=== PATIENT | female | born 1935 | race Caucasian/White ===

== ENCOUNTER → 2016-04-30 | Outpatient (REF) | payer SELFPAY | LOC: LAB 15:14 | PROVIDERS: Visit Provider Internal Medicine ==

== ENCOUNTER → 2017-09-16 16:57 | Outpatient (REF) | payer MEDICARE, BC, SELFPAY ==
[2017-09-16 17:14] LABS: Basophils % 0.6 % (0.1-2.0); Eosinophils # 0.2 K/mm3 (0.0-0.4); Eosinophils % 3.3 % (0.1-12.0); Hematocrit 41.2 % (37.0-47.0); Lymphocytes # 1.9 K/mm3 (0.7-4.5); Lymphocytes % 29.2 K/mm3 (10-50); Mean Corpuscular HGB Conc 31.6 g/dL (31.8-35.4); Mean Corpuscular Hemoglobin 30.2 pg (27.0-31.2); Mean Corpuscular Volume 95.4 fl (81-99); Mean Platelet Volume 7.2 fl (7.4-10.4); Monocytes # 0.5 K/mm3 (0.1-1.0); Monocytes % 8.3 % (1.7-9.3); Neutrophils # 3.7 K/mm3 (1.8-7.8); Neutrophils % 58.8 % (37.0-80.0); Platelet Count 336 K/mm3 (142-424); Red Blood Count 4.32 M/mm3 (4.20-5.40); Red Cell Distribution Width 12.7 % (11.5-17.5); White Blood Count 6.4 K/mm3 (4.8-10.8)
== END ==
LOC: LAB 16:57
PROVIDERS: Visit Provider Internal Medicine
DX: D64.9 Anemia, unspecified (principal); J44.1 Chronic obstructive pulmonary disease with (acute) exacerbation; J20.9 Acute bronchitis, unspecified
CPT/HCPCS: 85025

== ENCOUNTER → 2018-01-06 14:23 | Outpatient (CLI) | payer MEDICARE, BC, SELFPAY ==
--- NOTE | 2018-01-06 14:33 | XR_ITS ---
XR chest 2V HISTORY: ITS.REASON: COOUGH, CONGESTION, COPD ORDERING PHYSICIAN: Wesley Skinner PATIENT AGE: 82 years COMPARISON: 12/14/2017 FINDINGS: Normal heart size. Extensive COPD once again noted. The vanesa are prominent consistent with bilateral hilar adenopathy as seen on the recent chest CT of 12/14/2017. The left hilar adenopathy extends into the left mid and lower lung zone. Nodular density is present in the left mid lung at 2 cm. No obvious lobar consolidation or collapse evident. No acute bony anomalies. Pulmonary arteries are also prominent and may be related to pulmonary arterial hypertension. No acute bony anomalies. IMPRESSION: 1. COPD with suspected pulmonary arterial hypertension. 2. Left hilar and infrahilar adenopathy with nodular density in the left midlung similar to the previous CT scan. 3. No lobar consolidation or collapse
[2018-01-06 15:01] LABS: Basophils % 0.3 % (0.1-2.0); Eosinophils # 0.1 K/mm3 (0.0-0.4); Eosinophils % 1.4 % (0.1-12.0); Hematocrit 37.8 % (37.0-47.0); Hemoglobin 12.1 g/dL (12.2-16.2); Lymphocytes # 1.6 K/mm3 (0.7-4.5); Lymphocytes % 20.8 K/mm3 (10-50); Mean Corpuscular HGB Conc 31.9 g/dL (31.8-35.4); Mean Corpuscular Hemoglobin 30.3 pg (27.0-31.2); Mean Corpuscular Volume 94.8 fl (81-99); Mean Platelet Volume 6.8 fl (7.4-10.4); Monocytes # 0.5 K/mm3 (0.1-1.0); Monocytes % 6.1 % (1.7-9.3); Neutrophils # 5.6 K/mm3 (1.8-7.8); Neutrophils % 71.4 % (37.0-80.0); Platelet Count 441 K/mm3 (142-424); Red Blood Count 3.98 M/mm3 (4.20-5.40); White Blood Count 7.8 K/mm3 (4.8-10.8)
== END ==
PROVIDERS: PCP Internal Medicine; Visit Provider Internal Medicine
DX: R05 Cough (principal); J44.9 Chronic obstructive pulmonary disease, unspecified; K62.5 Hemorrhage of anus and rectum
CPT/HCPCS: 36415; 71046; 85025

== ENCOUNTER → 2018-02-06 11:36 | Outpatient (CLI) | payer MEDICARE, BC, SELFPAY ==
[2018-02-06 11:45] LABS: Microscopic, Urine URINE MICROSCOPIC (MICROSCOPIC)
--- NOTE | 2018-02-06 11:59 | XR_ITS ---
XR lumbar spine min 4V Ordering Physician: Wesley Skinner Patient Age: 82 years: Female HISTORY: ITS.REASON: LEFT SIDED LOW BACK PAIN TECHNIQUE: 5 view lumbar spine series . COMPARISON 12/14/2017 CT abdomen pelvis reconstructions FINDINGS . Diffuse demineralization. Diffuse Osteoporosis. . L2 superior endplate compression fracture L2. New compared to 12/14/2017 CT . superior endplate cavity with approximately 40% loss of height at the central portion of this concave superior endplate L2.. There is very subtle posterior positioning, posterior flaring of the posterior superior corner of L2 which may very slightly impinge upon the spinal canal. Only question some subtle concavity at inferior endplate L2. L1. Older inferior endplate compression fracture Mild inferior endplate cavity/reflecting prior older compression at L1 was seen on the recent CT December 2017 . features here unchanged since 12/14/2017. L4 and L3 vertebral bodies remain intact. Unchanged L4/5 Marked degenerative disc space narrowing with grade 1 anterior 7 mm listhesis of L4 on L5.. Prominent, exuberant facet hypertrophy & arthropathy.. December CT abdomen views of the L-spine showed showed spinal stenosis at L4/5 due to the combination of these features. L5/S1. Disc intact. Exuberant prominent facet hypertrophy and on right moderate on left. The AP view shows a dextro scoliosis of the lower lumbar spine most evident, and due to the marked disc space narrowing to the left at L4/5. . Slight levocurvature at the thoracolumbar region. Chronic changes at lung bases. Partially imaged bilateral hips fixation, ORIF. The sacrum intact SI joints unremarkable. IMPRESSION L2-. Superior endplate compression fracture, up to 35-40% loss of height centrally. This is new feature vs December 2017 CT abdomen study used as comparison. L1-Stable mild inferior endplate compression at L1 L4/5. Grade 1 anterolisthesis L5 4 on L5. Marked degenerative disc space narrowing to the left with exuberant facet hypertrophy bilaterally. (December CT revealed underlying spinal stenosis, also with bulging disc at right foramen) L5/S1. Disc space maintained but there is Exuberant facet hypertrophy on the right. Scoliosis as above. Diffuse demineralization. Osteoporosis
[2018-02-06 12:07] LABS: Basophils % 0.3 % (0.1-2.0); Eosinophils % 0.3 % (0.1-12.0); Hematocrit 43.5 % (37.0-47.0); Hemoglobin 13.1 g/dL (12.2-16.2); Lymphocytes # 0.7 K/mm3 (0.7-4.5); Lymphocytes % 10.8 K/mm3 (10-50); Mean Corpuscular HGB Conc 30.2 g/dL (31.8-35.4); Mean Corpuscular Hemoglobin 30.2 pg (27.0-31.2); Mean Corpuscular Volume 100.1 fl (81-99); Mean Platelet Volume 6.8 fl (7.4-10.4); Monocytes # 0.2 K/mm3 (0.1-1.0); Monocytes % 3.3 % (1.7-9.3); Neutrophils # 5.5 K/mm3 (1.8-7.8); Neutrophils % 85.3 % (37.0-80.0); Platelet Count 388 K/mm3 (142-424); Red Blood Count 4.34 M/mm3 (4.20-5.40); Red Cell Distribution Width 13.6 % (11.5-17.5); White Blood Count 6.5 K/mm3 (4.8-10.8)
[2018-02-06 12:13] LABS: MANUAL DIFFERENTIAL MANUAL DIFFERENTIAL (MANUAL DIFF)
[2018-02-06 12:16] LABS: Appearance,Urine SL CLOUDY (Clear); Bilirubin,Urine Negative (Negative); Blood, Urine Negative (Negative); Color,Urine YELLOW (Yellow); Glucose,Urine (UA) Negative (Negative); Ketones,Urine Negative (Negative); Leukocyte Esterase,Urine Negative (Negative); Nitrate,Urine Negative (Negative); Protein,Urine Negative (Negative); Specific Gravity, Urine 1.015 (1.005-1.030); Urobilinogen,Urine 0.2 EU/dl (0.2)
[2018-02-06 12:31] LABS: Lymphocytes % 9 % (10-50); Monocytes % 3 % (2-9); Neutrophils % 88 % (42-76); Platelet Estimate Normal; Total Cells Counted 100
[2018-02-06 12:32] LABS: Macrocytosis 1+
[2018-02-06 12:46] LABS: Amphetamine/Metha Screen,Urine Negative ng/mL (<1000); Barbiturates Screen,Urine Negative ng/mL (<200); Benzodiazepines Screen,Urine Negative ng/mL (<200); Cannabinoid Screen,Urine Negative ng/mL (<50); Cocaine Screen,Urine Negative ng/mL (<300); Methadone Screen,Urine Negative ng/mL (<300); Opiate Screen,Urine Positive ng/mL (<300); Phencyclidine Screen,Urine Negative ng/mL (<25)
[2018-02-06 12:58] LABS: Anion Gap 10.7 mEq/L (5-15); Blood Urea Nitrogen 11 mg/dL (7-18); Calcium 8.2 mg/dL (8.5-10.1); Carbon Dioxide 30 mmol/L (21.0-32.0); Chloride 96 mmol/L (98-107); Creatinine,Serum 0.84 mg/dL (0.55-1.02); Estimated Glomerular Filt Rate 65 ml/min (>60); GFR (African American) 79 ML/MIN (>60); Glucose 107 mg/dL (74-106); Potassium 4.7 mmoL/L (3.5-5.1); Sodium 132 mmol/L (136-145)
[2018-02-06 13:30] LABS: Bacteria,Urine 4+ /lpf
== END ==
PROVIDERS: Visit Provider Internal Medicine
DX: R19.5 Other fecal abnormalities (principal); M54.5 Low back pain; R53.83 Other fatigue
CPT/HCPCS: 36415; 72110; 80048; 80305; 81001; 85007; 85025; 87086

== ENCOUNTER 2018-03-27 09:47 | Inpatient (IN) ==
[2018-03-27 11:03] LABS: Basophils % 0.3 % (0.1-2.0); Eosinophils % 0.3 % (0.1-12.0); Hematocrit 41.5 % (37.0-47.0); Hemoglobin 13.1 g/dL (12.2-16.2); Lymphocytes # 0.6 K/mm3 (0.7-4.5); Lymphocytes % 5.7 % (10-50); Mean Corpuscular HGB Conc 31.5 g/dL (31.8-35.4); Mean Corpuscular Hemoglobin 30.9 pg (27.0-31.2); Mean Platelet Volume 6.7 fl (7.4-10.4); Monocytes # 0.3 K/mm3 (0.1-1.0); Monocytes % 2.3 % (1.7-9.3); Neutrophils # 10.1 K/mm3 (1.8-7.8); Neutrophils % 91.3 % (37.0-80.0); Platelet Count 412 K/mm3 (142-424); Red Blood Count 4.23 M/mm3 (4.20-5.40); Red Cell Distribution Width 13.6 % (11.5-17.5)
--- NOTE | 2018-03-27 11:08 | Emergency Department Note ---
ED Disposition Clinical Impression: Mediastinal mass, Community acquired pneumonia Disposition: Admitted as Observation Condition on Discharge: Good Referrals: Wesley Skinner [Primary Care Provider] - - Critical Care Critical Care Time: No Attestation: On 03/27/18, the high probability of a clinically significant, sudden or life threatening deterioration of the following system(s) required my full and direct attention, intervention and personal management. The time I documented below is in addition to time spent performing reported procedures but includes the following listed in this critical care notation. Medical Decision Making - Medical Records Medical records reviewed: Yes: I reviewed the patient's medical records. - Isaiah Inquiry Pt receiving controlled substance: No Isaiah was queried for this patient: No Vital Signs: 03/27/18 09:48 03/27/18 10:18 Temperature 97.7 F Temperature Source Temporal Artery Scan Pulse Rate 70 Pulse Rate [Right Radial] 78 Respiratory Rate 22 Blood Pressure [Right Arm] 119/55 L Blood Pressure Mean [Right Arm] 76 Blood Pressure Source [Right Arm] Automatic Cuff Blood Pressure Position [Right Arm] Sitting 02 Sat by Pulse Oximetry 96 Oxygen Delivery Method Nasal Cannula Oxygen Flow Rate (LPM) 3 - Lab Data Lab results reviewed: Yes: I reviewed the patient's lab results. Lab Results 03/27/18 10:30: WBC 11.0 H, RBC 4.23, Hgb 13.1, Hct 41.5, MCV 98.0, MCH 30.9, MCHC 31.5 L, RDW 13.6, Plt Count 412, MPV 6.7 L, Neut % (Auto) 91.3 H, Lymph % (Auto) 5.7 L, [place] % (Auto) 2.3, Eos % (Auto) 0.3, Baso % (Auto) 0.3, Neut # (Auto) 10.1 H, Lymph # (Auto) 0.6 L, [place] # (Auto) 0.3, Eos # (Auto) 0.0, Baso # (Auto) 0.0, Total Counted 100, Neutrophils % (Manual) 88 H, Lymphocytes % (Manual) 12, Platelet Estimate Normal, RBC Morphology Normal 03/27/18 10:45: Sodium 138, Potassium 3.7, Chloride 99, Carbon Dioxide 31, Anion Gap 11.7, BUN 15, Creatinine 0.90, Estimated Creat Clear 27, Estimated GFR 60, Est GFR ( Amer) 73, Glucose 126 H, Calcium 8.7, Total Bilirubin 0.3, AST 24, ALT 17, Alkaline Phosphatase 62, Total Protein 7.2, Albumin 3.6, Globulin 3.6 H, Albumin/Globulin Ratio 1.0 L 03/27/18 10:45: Lactate 1.5 03/27/18 10:45: Troponin I < 0.02 Result diagrams: 03/27/18 10:30 03/27/18 10:45 Orders (Tests/Meds): ED MEDICATIONS Discontinued Medications Generic Name Dose Route Start Last Admin Trade Name Freq PRN Reason Stop Dose Admin Albuterol Sulfate 2.5 mg 03/27/18 10:09 03/27/18 10:14 Albuterol 0.083% 2.5mg/3ml Neb IH 03/27/18 10:10 2.5 mg ONCE ONE Administration Sodium Chloride 1,000 mls @ 999 mls/hr 03/27/18 10:15 03/27/18 10:23 Sod Chlor 0.9% 1000ml Bag IV 03/27/18 11:15 999 mls/hr .Q1H1M JOEL Administration Ondansetron HCl 4 mg 03/27/18 10:09 03/27/18 10:23 Zofran 4mg/2ml Vial IV 03/27/18 10:10 4 mg ONCE ONE Administration ORDERS Category Date Time Status UA [Urinalysis and Microscopic] Stat Lab 03/27/18 11:03 Ordered Blood Culture Stat Micro 03/27/18 10:45 Received General Adult HPI - General Chief complaint: Shortness of Breath/Dyspnea Stated complaint: poss pneumonia Time Seen by Provider: 03/27/18 09:50 Mode of Arrival: Wheelchair Limitations: No Limitations Description of Symptoms (Recalled from ER Triage Doc. by RN): Pt sent from PCP office r/t increased SOA, cough. Pt reports has been vomitting this morning. - History of Present Illness Onset (ago): hour(s) Location: chest, abdomen Severity: moderate Consistency: intermittent, other (chest pain with cough) Associated symptoms: chest pain. negative: confusion Treatments prior to arrival: none - Related Data Home Medications Medication Instructions Recorded Confirmed alendronate 5 mg tablet 5 mg PO QAM 09/27/17 aspirin 81 mg tablet,delayed 81 mg PO DAILY tab 09/27/17 release ferrous fumarate 89 mg (29 mg 89 mg PO DAILY tab 09/27/17 iron) tablet lisinopril 20 1 tab PO DAILY tab 09/27/17 mg-hydrochlorothiazide 25 mg tablet lorazepam 0.5 mg tablet 0.5 mg PO QHS PRN 09/27/17 meclizine 25 mg tablet 12.5 mg PO TID PRN 09/27/17 oxybutynin chloride 5 mg tablet 5 mg PO DAILY tab 09/27/17 ropinirole 3 mg tablet 3 mg PO QHS 09/27/17 Allergies Allergy/AdvReac Type Severity Reaction Status Date / Time No Known Allergies Allergy Unverified 03/22/17 15:02 [facility] History - Hepatitis A Screen Drug use history?: No High risk sexual behaviors?: No History of sexually transmitted infection?: No Currently employed?: No Childcare worker?: No Do you have indoor plumbing?: Yes Do you have electricity?: Yes Attestation statement:: This patient has been screened for Hepatitis A risk factors. Medical History: Reports:: Chronic Obstructive Pulmonary Disease (COPD), Renal Disease Denies:: Diabetes Mellitus Type 1, Diabetes Mellitus Type 2 - Social History Smoking Status: Current every day smoker Tobacco Type: cigarettes Alcohol Intake: never - Psychiatric History Expresses thoughts of harming self/others: None Suicide Plan Description: No Plan ROS Obtained: Yes All systems reviewed & no additional complaints - Constitutional Constitutional: Reports chills, Reports lethargy, Reports malaise - Eyes Eyes: Denies change in vision - ENT Ears, Nose, Mouth, and Throat: Reports system reviewed and no additional complaints, except as docu, Reports sore throat, Reports throat swelling - Cardiovascular Cardiovascular: Reports system reviewed and no additional complaints, except as docu, Reports chest pain, Reports dyspnea, Reports dyspnea on exertion, Denies radiating jaw, neck or arm pain, Denies rapid heart rate, Denies slow heart rate - Respiratory Respiratory: Yes system reviewed and no additional complaints, except as docu, Yes chest congestion, Yes cough, Yes dyspnea on exertion, Yes excessive phlegm production, No coughing up blood, Yes pain on inspiration - Musculoskeletal Musculoskeletal: Reports system reviewed and no additional complaints, except as docu, Denies joint swelling, Denies muscle cramps, Denies muscle weakness, Denies muscle aches - Integumentary/Breasts Skin/Breast: Reports system reviewed and no additional complaints, except as docu, Denies rash - Neurologic Neurologic: Reports system reviewed and no additional complaints, except as docu, Denies focal weakness, Denies tingling/numbness/burning sensations, Denies seizure-like activity Physical Exam - General General appearance: alert, in no apparent distress, cachectic - Head Head exam: atraumatic - Eye Eye exam: Present: normal appearance - ENT ENT exam: Present: normal exam, normal oropharynx, mucous membranes moist - Neck Neck exam: Present: normal inspection - Respiratory Respiratory exam: Present: wheezes, prolonged expiratory phase. Absent: respira tory distress - Cardiovascular Cardiovascular exam: Present: regular rate, normal heart sounds. Absent: systolic murmur - Abdominal Exam Abdominal exam: Present: soft, tenderness. Absent: distention, guarding, rebound, rigidity, organomegaly, ascites, mass Abdominal tenderness: Present: LLQ, epigastrium - Extremities Exam Extremities exam: Absent: normal inspection, joint swelling - Neurological Exam Neurological exam: Present: CN II-XII intact - Psychiatric Psychiatric exam: Present: normal affect - Skin Skin exam: Present: warm, dry, intact
[2018-03-27 11:14] LABS: Albumin Level 3.6 gm/dL (3.4-5.0); Anion Gap 11.7 mEq/L (5-15); Bilirubin,Total 0.3 mg/dL (0.2-1.0); Calcium 8.7 mg/dL (8.5-10.1); Globulin 3.6 gm/dl (1.3-3.2); Potassium 3.7 mmoL/L (3.5-5.1); Total Protein,Serum 7.2 gm/dL (6.4-8.2)
[2018-03-27 11:19] LABS: Lymphocytes % 12 % (10-50); Neutrophils % 88 % (42-76); Total Cells Counted 100
[2018-03-27 11:20] LABS: RBC Morphology Normal
--- NOTE | 2018-03-27 13:39 | History & Physical Report ---
*Admission Date: 03/27/18 *Chief complaint: Vomiting/shortness of air *History of present illness: 82-year-old white female, patient of Dr. Skinner, who went to his office today because of difficulty breathing and vomiting. Transitioned over to the emergency department where she was found to have lobar infiltrate, chest mass and dehydration. Admitted to hospital with diagnosis of pneumonia. Patient reports that she been feeling badly for 2-3 weeks. Her daughter and sister report that she has had decreasing p.o. intake and weight loss over the past couple of weeks. Of note she has a known diagnosis of chest mass and she and Dr. Skinner have decided that her lungs are too bad for her to have a biopsy and they have discussed pursuing palliative care. [facility] History I have reviewed the patient's past medical history: Yes Medical History: Reports:: Chronic Obstructive Pulmonary Disease (COPD), Renal Disease Denies:: Diabetes Mellitus Type 1, Diabetes Mellitus Type 2 - *Social History Smoking Status: Current every day smoker Tobacco Type: cigarettes Alcohol Intake: never - Psychiatric History Expresses thoughts of harming self/others: None Suicide Plan Description: No Plan *Family Hx:: Non-contributory Review of Systems - Review of Systems Review of systems:: unable to obtain Patient has significant hard of hearing status but is alert. Able to respond appropriately to commands. Reports that she is feeling better since hospital admission. Reports nausea without vomiting. Denies abdominal pain. Reports chest pain and pressure. Reports difficulty breathing. Denies palpitations. Denies leg swelling. - *Neurologic Denies localized weakness, Denies tingling/numbness/burning sensations, Denies seizure-like activity Meds Home Medications Medication Instructions Recorded Confirmed Type alendronate 5 mg tablet 5 mg PO QAM 09/27/17 History aspirin 81 mg tablet,delayed 81 mg PO DAILY tab 09/27/17 History release ferrous fumarate 89 mg (29 mg 89 mg PO DAILY tab 09/27/17 History iron) tablet lisinopril 20 1 tab PO DAILY tab 09/27/17 History mg-hydrochlorothiazide 25 mg tablet lorazepam 0.5 mg tablet 0.5 mg PO QHS PRN 09/27/17 History meclizine 25 mg tablet 12.5 mg PO TID PRN 09/27/17 History oxybutynin chloride 5 mg tablet 5 mg PO DAILY tab 06/26/18 History ropinirole 3 mg tablet 3 mg PO QHS 09/27/17 History Allergies Allergy/AdvReac Type Severity Reaction Status Date / Time No Known Allergies Allergy Unverified 03/22/17 15:02 Exam Vital signs and Labs for Last 24 Hours: Temp Pulse Resp BP Pulse Ox 98.2 F 62 20 101/51 L 96 03/27/18 13:24 03/27/18 13:24 03/27/18 13:24 03/27/18 13:24 03/27/18 12:52 Laboratory Results - last 24 hr 03/27/18 10:30: WBC 11.0 H, RBC 4.23, Hgb 13.1, Hct 41.5, MCV 98.0, MCH 30.9, MCHC 31.5 L, RDW 13.6, Plt Count 412, MPV 6.7 L, Neut % (Auto) 91.3 H, Lymph % (Auto) 5.7 L, [place] % (Auto) 2.3, Eos % (Auto) 0.3, Baso % (Auto) 0.3, Neut # (Auto) 10.1 H, Lymph # (Auto) 0.6 L, [place] # (Auto) 0.3, Eos # (Auto) 0.0, Baso # (Auto) 0.0, Total Counted 100, Neutrophils % (Manual) 88 H, Lymphocytes % (Manual) 12, Platelet Estimate Normal, RBC Morphology Normal 03/27/18 10:45: Sodium 138, Potassium 3.7, Chloride 99, Carbon Dioxide 31, Anion Gap 11.7, BUN 15, Creatinine 0.90, Estimated Creat Clear 27, Estimated GFR 60, Est GFR ( Amer) 73, Glucose 126 H, Calcium 8.7, Total Bilirubin 0.3, AST 24, ALT 17, Alkaline Phosphatase 62, Total Protein 7.2, Albumin 3.6, Globulin 3.6 H, Albumin/Globulin Ratio 1.0 L 03/27/18 10:45: Lactate 1.5 03/27/18 10:45: Troponin I < 0.02 I & O for Last 24 hours: Intake & Output 03/25/18 03/26/18 03/27/18 03/28/18 11:59 11:59 11:59 11:59 Weight 83 lb Narrative: Patient appears much older than her stated age. Dentition is poor. She has significant muscle atrophy and cachexia noted with evidence of severe protein calorie malnutrition. Poor air movement with rhonchi in the left lower lung field. Heart rate regular. 2/6 murmur noted. Abdomen soft. Cachectic. Minimally/diffusely tender but no rebound or guarding. Extremities have poor capillary refill but normal distal pulses. No edema noted. Cachexia noted. Globally weak but no focal neurologic deficits. Assessment and Plan (1) End stage COPD Current visit: Yes Status: Acute Category: Medical Code(s): J44.9 - Chronic obstructive pulmonary disease, unspecified Palliative care seems to be in order here given chest mass that is probably a lung cancer and patient's severe lung disease. Daughter and sister are amenable to hospice consultation and have already discussed this with the patient. (2) Severe protein-calorie malnutrition Current visit: Yes Status: Acute Category: Medical Code(s): E43 - Unspecified severe protein-calorie malnutrition Supportive care. This issue complicates all aspects of her care in the hospital (3) Postobstructive pneumonia Current visit: Yes Status: Acute Category: Medical Code(s): J18.9 - Pneumonia, unspecified organism Continue levofloxacin. Add clindamycin for possible anaerobic issues. (4) Community acquired pneumonia Current visit: Yes Status: Acute Category: Medical Code(s): J18.9 - Pneumonia, unspecified organism See notes above (5) Mediastinal mass Current visit: Yes Status: Acute Category: Medical Code(s): J98.59 - Other diseases of mediastinum, not elsewhere classified Mediastinal/chest mass. High likelihood of malignancy. Family and patient did not wish biopsy. Hospice consultation is appropriate.
[2018-03-27 21:02] LABS: Microscopic, Urine URINE MICROSCOPIC (MICROSCOPIC)
[2018-03-27 21:03] LABS: Appearance,Urine CLEAR (Clear); Bilirubin,Urine Negative (Negative); Blood, Urine Negative (Negative); Color,Urine YELLOW (Yellow); Glucose,Urine (UA) Negative (Negative); Ketones,Urine Negative (Negative); Leukocyte Esterase,Urine Negative (Negative); PH,Urine 6.5 (5.0-8.5); Protein,Urine TRACE (Negative); Specific Gravity, Urine 1.025 (1.005-1.030); Urobilinogen,Urine 0.2 EU/dl (0.2)
[2018-03-28 05:52] LABS: Basophils % 0.3 % (0.1-2.0); Eosinophils % 0.5 % (0.1-12.0); Hematocrit 34.2 % (37.0-47.0); Hemoglobin 10.9 g/dL (12.2-16.2); Lymphocytes # 1.2 K/mm3 (0.7-4.5); Lymphocytes % 21.4 % (10-50); Mean Corpuscular HGB Conc 31.8 g/dL (31.8-35.4); Mean Corpuscular Volume 97.5 fl (81-99); Mean Platelet Volume 7.3 fl (7.4-10.4); Monocytes # 0.4 K/mm3 (0.1-1.0); Monocytes % 6.5 % (1.7-9.3); Neutrophils # 3.8 K/mm3 (1.8-7.8); Neutrophils % 71.3 % (37.0-80.0); Platelet Count 332 K/mm3 (142-424); Red Cell Distribution Width 13.7 % (11.5-17.5); White Blood Count 5.4 K/mm3 (4.8-10.8)
[2018-03-28 06:01] LABS: Calcium 7.5 mg/dL (8.5-10.1)
--- NOTE | 2018-03-28 08:19 | Pharmacy Consult Notes ---
[facility] Pharmacy VTE Monitoring - Patient Demographics Admission date: 03/27/18 Report Date: 03/28/18 Time: 08:19 Allergies/Adverse Reactions: Patient Allergies No Known Allergies Allergy (Verified 03/27/18 15:10) Height: 1.6 m Weight: 38.329 kg Patient Problems: Current Active Problems Community acquired pneumonia (Acute) Mediastinal mass (Acute) End stage COPD (Acute) Severe protein-calorie malnutrition (Acute) Postobstructive pneumonia (Acute) - VTE Risk Labs: VTE Related Lab Results Hgb 10.9 g/dL (12.2-16.2) L D 03/28/18 05:40 Hct 34.2 % (37.0-47.0) L 03/28/18 05:40 Plt Count 332 K/mm3 (142-424) 03/28/18 05:40 BUN 13 mg/dL (7-18) 03/28/18 05:40 Creatinine 0.71 mg/dL (0.55-1.02) D 03/28/18 05:40 Estimated Creat Clear 27 mL/min (50-200) 03/28/18 05:40 VTE Risk Level: Low Risk - Prophylaxis VTE Prophylaxis Ordered?: Yes Types of VTE Prophylaxis: TEDS Knee High Location of Applied Device: Bilateral Lower Extremeties - VTE Diagnosis Confirmed Treatment or plan recommended: Continue Current Treatment
--- NOTE | 2018-03-28 09:02 | Progress Note ---
Internal Medicine - PN: Subj *Date: 03/28/18 *Time: 08:59 Interval history: Patient had a fairly restful night but complains of some anterior chest wall pain. Apparently Dr. Skinner had started [place] for her in January when the initial chest mass was diagnosed but this had not been continued in the hospital. Her sister also asks about a nicotine patch. She is breathing more easily. She would like to eat a little bit more but she and her sister discussed that she has had a hard time swallowing over the past several weeks. They deny regurgitation or actual pain. Exam Vital signs and Labs for Last 24 Hours: Temp Pulse Resp BP Pulse Ox 97.9 F 65 16 97/56 L 91 L 03/28/18 07:49 03/28/18 07:49 03/28/18 07:49 03/28/18 07:49 03/28/18 07:49 Laboratory Results - last 24 hr 03/27/18 10:30: WBC 11.0 H, RBC 4.23, Hgb 13.1, Hct 41.5, MCV 98.0, MCH 30.9, MCHC 31.5 L, RDW 13.6, Plt Count 412, MPV 6.7 L, Neut % (Auto) 91.3 H, Lymph % (Auto) 5.7 L, [place] % (Auto) 2.3, Eos % (Auto) 0.3, Baso % (Auto) 0.3, Neut # (Auto) 10.1 H, Lymph # (Auto) 0.6 L, [place] # (Auto) 0.3, Eos # (Auto) 0.0, Baso # (Auto) 0.0, Total Counted 100, Neutrophils % (Manual) 88 H, Lymphocytes % (Manual) 12, Platelet Estimate Normal, RBC Morphology Normal 03/27/18 10:45: Sodium 138, Potassium 3.7, Chloride 99, Carbon Dioxide 31, Anion Gap 11.7, BUN 15, Creatinine 0.90, Estimated Creat Clear 27, Estimated GFR 60, Est GFR ( Amer) 73, Glucose 126 H, Calcium 8.7, Total Bilirubin 0.3, AST 24, ALT 17, Alkaline Phosphatase 62, Total Protein 7.2, Albumin 3.6, Globulin 3.6 H, Albumin/Globulin Ratio 1.0 L 03/27/18 10:45: Lactate 1.5 03/27/18 10:45: Troponin I < 0.02 03/27/18 21:00: Urine Color Yellow, Urine Appearance Clear, Urine pH 6.5, Ur Specific [place] 1.025, Urine Protein Trace, Urine Glucose (UA) Negative, Urine Ketones Negative, Urine Blood Negative, Urine Nitrate Negative, Urine Bilirubin Negative, Urine Urobilinogen 0.2, Ur Leukocyte Esterase Negative, Urine WBC 10- 20, Ur Squamous Epith Cells 10-20 03/28/18 05:40: WBC 5.4 D, RBC 3.50 L, Hgb 10.9 L D, Hct 34.2 L, MCV 97.5, MCH 31.0, MCHC 31.8, RDW 13.7, Plt Count 332, MPV 7.3 L, Neut % (Auto) 71.3, Lymph % (Auto) 21.4, [place] % (Auto) 6.5, Eos % (Auto) 0.5, Baso % (Auto) 0.3, Neut # (Auto) 3.8, Lymph # (Auto) 1.2, [place] # (Auto) 0.4, Eos # (Auto) 0.0, Baso # (Auto) 0.0 03/28/18 05:40: Sodium 138, Potassium 4.0, Chloride 105, Carbon Dioxide 29, Anion Gap 8.0, BUN 13, Creatinine 0.71 D, Estimated Creat Clear 27, Estimated GFR 79, Est GFR ( Amer) 96 D, Glucose 88 D, Calcium 7.5 L D I & O for Last 24 hours: Intake & Output 03/25/18 03/26/18 03/27/18 03/28/18 11:59 11:59 11:59 11:59 Intake Total 2237 Output Total 150 / 150 Balance 2087 Weight 83 lb 84 lb 8 oz Narrative: Significantly cachectic as previously noted but color is better and tissue perfusion is slightly better. Lungs have rhonchi and crackles in both lower lung kim, especially on the right side. Heart rate regular. Abdomen is scaphoid but soft. Oropharynx clear. No JVD. Assessment and Plan (1) End stage COPD Current visit: Yes Status: Acute Category: Medical Code(s): J44.9 - Chronic obstructive pulmonary disease, unspecified Continue current nebulizer therapy (2) Severe protein-calorie malnutrition Current visit: Yes Status: Acute Category: Medical Code(s): E43 - Unspecified severe protein-calorie malnutrition Advance diet today (3) Postobstructive pneumonia Current visit: Yes Status: Acute Category: Medical Code(s): J18.9 - Pneumonia, unspecified organism Continue current antibiotics, try to obtain sputum culture (4) Community acquired pneumonia Current visit: Yes Status: Acute Category: Medical Code(s): J18.9 - Pneumonia, unspecified organism (5) Mediastinal mass Current visit: Yes Status: Acute Category: Medical Code(s): J98.59 - Other diseases of mediastinum, not elsewhere classified Hospice referral tomorrow. Dexamethasone to see if this will help with pain and swallowing issues. (6) Dysphagia Current visit: Yes Status: Acute Category: Medical Code(s): R13.10 - Dysphagia, unspecified Soft mechanical diet. Dexamethasone as noted above (7) Hypocalcemia Current visit: Yes Status: Acute Category: Medical Code(s): E83.51 - Hypocalcemia Replace calcium today
[2018-03-29 07:30] LABS: Anion Gap 10.4 mEq/L (5-15); Calcium 7.8 mg/dL (8.5-10.1); Potassium 4.4 mmoL/L (3.5-5.1)
--- NOTE | 2018-03-29 08:35 | Discharge Summary ---
General - General Admission date:: 03/27/18 Discharge date: 03/29/18 HPI HPI: 82-year-old white female, patient of Dr. Skinner, who went to his office today because of difficulty breathing and vomiting. Transitioned over to the emergency department where she was found to have lobar infiltrate, chest mass and dehydration. Admitted to hospital with diagnosis of pneumonia. Patient reports that she been feeling badly for 2-3 weeks. Her daughter and s jessi report that she has had decreasing p.o. intake and weight loss over the past couple of weeks. Of note she has a known diagnosis of chest mass and she and Dr. Skinner have decided that her lungs are too bad for her to have a biopsy and they have discussed pursuing palliative care. Hospital Course Hospital Course: Patient was admitted, placed on IV antibiotics to cover community acquired pneumonia as well as postobstructive pneumonia. Chest x-ray confirmed the finding of a mediastinal mass. Patient looked much better after IV fluids, some pain control and antibiotics. Discussed case with her daughter and patient's sister who understand issues with lung tumor, decision to avoid biopsy and her end-stage COPD and have wish to pursue hospice care. This morning she is improved and is reached really our maximal medical goals in the hospital. We will consult hospice to transition to home care with hospice services. She will be discharged home with pain control, for her cancer pain. Also with antibiotics and dexamethasone for infectious/swelling issues prospectively Objective Vital signs: Temp Pulse Resp BP Pulse Ox 98.2 F 65 18 129/78 96 03/29/18 08:00 03/29/18 08:00 03/29/18 08:00 03/29/18 08:00 03/29/18 08:00 Narrative: Patient is pleasant, talkative, condition is difficult because of her hard of hearing situation. She is very frail and cachectic. Lungs have rhonchi bilaterally, especially the left side. Abdomen is scaphoid but otherwise soft and nontender. Heart rate regular. She is cachectic with muscle atrophy in all of her extremities. No focal neurologic deficits except for hard of hearing status. Results Labs on day of discharge: Labs from last 24 hours 03/29/18 06:25 Sodium 135 L Potassium 4.4 Chloride 102 Carbon Dioxide 27 Anion Gap 10.4 BUN 11 Creatinine 0.61 Estimated Creat Clear 27 Estimated GFR 94 Est GFR ( Amer) 114 Glucose 96 Calcium 7.8 L Preliminary micro results at discharge 03/27/18 21:00 Urine Culture - Preliminary Urine,Random NO GROWTH AFTER 24 HOURS DS: Diagnosis - Discharge Diagnosis (1) End stage COPD Status: Chronic (2) Severe protein-calorie malnutrition Status: Chronic (3) Postobstructive pneumonia Status: Acute (4) Community acquired pneumonia Status: Acute (5) Mediastinal mass Status: Chronic (6) Dysphagia Status: Chronic (7) Hypocalcemia Status: Resolved Discharge Plan - Patient Discharge Instructions ACTIVITY: Continue current activity, Limited activity DIET: continue same diet Patient Instructions: Pneumonia-Adult, Chronic Obstructive Pulmonary Disease, DI for Malnutrition - Older Adults, Esophageal Dysphagia, Hypocalcemia - Follow up Plan Unknown provider or service follow up:: 03/29/18 08:32 Hospice services at home Disposition: Hospice - Home Home Medications: Home Medications Medication Instructions Recorded Confirmed Type alendronate 5 mg tablet 5 mg PO QAM 09/27/17 03/28/18 History aspirin 81 mg tablet,delayed 81 mg PO DAILY tab 09/27/17 03/28/18 History release lisinopril 20 1 tab PO DAILY tab 09/27/17 03/28/18 History mg-hydrochlorothiazide 25 mg tablet lorazepam 0.5 mg tablet 0.5 mg PO HSP PRN 09/27/17 03/28/18 History meclizine 25 mg tablet 25 mg PO TIDP PRN 09/27/17 03/28/18 History ropinirole 3 mg tablet 3 mg PO HS 09/27/17 03/28/18 History Citalopram Hydrobromide [Celexa] 10 mg PO DAILY 03/28/18 03/28/18 History Ferrous Sulfate 325 mg PO BID 03/28/18 03/28/18 History Oxybutynin Chloride [Oxybutynin 15 mg PO DAILY 03/28/18 03/28/18 History Chloride ER] Sulfamethoxazole/Trimethoprim 1 each PO HS 03/28/18 03/28/18 History [Bactrim DS tablet] Clindamycin HCl [Clindamycin HCl 300 mg PO Q8 #21 cap 03/29/18 Rx 300mg Cap] Dexamethasone [Decadron] 4 mg PO TID #15 tablet 03/29/18 Rx Hydrocodone/Acetaminophen 1 each PO BIDP PRN #45 tab 03/29/18 Rx [Hydrocodone-Acetamin 7.5-325] levoFLOXacin [Levaquin 500mg 500 mg PO DAILY #7 tab 03/29/18 Rx tab] Prescriptions/Medication Reconciliation: New Dexamethasone [Decadron] 4 mg PO TID #15 tablet levoFLOXacin [Levaquin 500mg tab] 500 mg PO DAILY #7 tab Clindamycin HCl [Clindamycin HCl 300mg Cap] 300 mg PO Q8 #21 cap Continue meclizine 25 mg tablet 25 mg PO TIDP PRN PRN Reason: Nausea aspirin 81 mg tablet,delayed release 81 mg PO DAILY tab lorazepam 0.5 mg tablet 0.5 mg PO HSP PRN PRN Reason: Anxiety ropinirole 3 mg tablet 3 mg PO HS Ferrous Sulfate 325 mg PO BID Citalopram Hydrobromide [Celexa] 10 mg PO DAILY Oxybutynin Chloride [Oxybutynin Chloride ER] 15 mg PO DAILY Hydrocodone/Acetaminophen [Hydrocodone-Acetamin 7.5-325] 1 each PO BIDP PRN #45 tab PRN Reason: PAIN Discontinued lisinopril 20 mg-hydrochlorothiazide 25 mg tablet 1 tab PO DAILY tab alendronate 5 mg tablet 5 mg PO QAM Sulfamethoxazole/Trimethoprim [Bactrim DS tablet] 1 each PO HS
== END 2018-03-29 12:31 | disposition hospice, home (50) | DRG 190 ==
LOC: 2ND 09:47 → ER 09:47 → 2ND 13:24
PROVIDERS: ADMIT Internal Medicine Adolescent Medicine; ATTEND Internal Medicine Adolescent Medicine
CPT/HCPCS: 36415; 71020; 71046; 74176; 80048; 80053; 81001; 83605; 84484; 85007; 85025; 87040; 87086; 93005; 94640; 94761; 96365; 96367; 96375; 99284; J1956; J2405